=== PATIENT | female | born 1970 | race Caucasian/White ===

== ENCOUNTER 2017-07-29 14:48 | Emergency (ER) | payer OTHER ==
[~2017-07-29] VITALS: Ht 167.6 cm; Wt 90.7 kg
[2017-07-29] MEDS ORDERED: BUPRENORPHINE HC8 MG SL (15:03)
[2017-07-29] MEDS ORDERED: ARIP20 PO (15:04)
[2017-07-29] MEDS ORDERED: TEMA30 PO (15:04)
[2017-07-29] MEDS ORDERED: RAME8 PO (15:05)
[2017-07-29] MEDS ORDERED: Baclofen20 MG PO (15:06)
[2017-07-29] MEDS ORDERED: SINUS (15:07)
[2017-07-29] MEDS ORDERED: CHOL10002 PO (15:07)
[2017-07-29] MEDS ORDERED: PROM25 PO (15:08)
[2017-07-29] MEDS ORDERED: ALBU90OI61 INH (15:08)
[2017-07-29] MEDS ORDERED: CLON.1 PO (15:09)
[2017-07-29 16:25] LABS: Calcium, Ionized (POC) 1.22 mmol/L (1.10-1.46); Chloride (POC) 108 mmol/L (98-108); Creatinine (POC) 0.5 mg/dL (0.6-1.0); Glucose (ISTAT POC) 96 mg/dL (70-99); Hemoglobin (POC) 12.2 g/dL (12.0-16.0); Potassium (POC) 4.2 mmol/L (3.5-5.5); Sodium (POC) 140 mmol/L (135-148); Total CO2 (POC) 23 mmol/L (21-32)
== END 2017-07-29 16:58 | disposition home or self-care (01) ==
LOC: ER 14:48
PROVIDERS: Emergency Medicine
DX: G40.909 Epilepsy, unspecified, not intractable, without status epilepticus (principal); F17.210 Nicotine dependence, cigarettes, uncomplicated; Z79.899 Other long term (current) drug therapy
CPT/HCPCS: 36415; 80047; 81000; 85014; 99283